=== PATIENT | female | born 1940 | race Two or more races ===

== ENCOUNTER 2020-01-07 11:40 | Inpatient (IN) ==
[2020-01-07 12:42] LABS: ABS Basophils 0.1 10^3/ul (0-0.2); ABS Eosinophils 0.2 10^3/ul (0-0.6); ABS Lymphocytes 1.4 10^3/ul (1.0-4.8); ABS Monocytes 0.4 10^3/ul (0-0.8); ABS Neutrophils 2.5 10^3/ul (1.5-7.7); Eosinophil % 3.6 %; Hematocrit 19 % (35-47); Lymphocyte % 30.2 %; Mean Corpuscular HGB Conc 33 g/dL (31-36); Mean Corpuscular Hemoglobin 28 pg (27-31); Mean Corpuscular Volume 86 fL (80-97); Mean Platelet Volume 8.4 fL (7.4-10.4); Nucleated Red Blood Cells % 0.1; Platelet Count 231 10^3/uL (150-450); Red Blood Count 2.16 10^6 /uL (3.70-4.87); Red Cell Distribution Width 15 % (10-15); White Blood Count 4.6 10^3/uL (3.5-10.8)
[2020-01-07 12:46] LABS: INR 1.09 (0.82-1.09)
[2020-01-07 12:59] LABS: Albumin 2.6 g/dL (3.2-5.2); Albumin/Globulin Ratio 0.8 (1-3); BUN/Creatinine Ratio 13.2 (8-20); EGFR African American 60.7 (>60); EGFR Non-African American 50.1 (>60); Globulin 3.2 g/dL (2-4); Potassium 3.8 mmol/L (3.5-5.0); Total Bilirubin 0.5 mg/dL (0.2-1.0); Total Protein 5.8 g/dL (6.4-8.9)
[2020-01-07 13:37] LABS: Burr Cells 1+; Polychromasia 1+; Schistocytes 1+
[2020-01-07 13:38] LABS: Tear Drop Cells 1+
[2020-01-07] MEDS: Pantoprazole 80 mg in NS BAG 80 MG/250 ML BAG IV SCH ×2 (13:40→23:14)
[2020-01-07] MEDS ORDERED: Albuterol 2.5mg/3 ml (0.083%) NEB.SOLN INH PRN (14:25)
[2020-01-07] MEDS ORDERED: Albuterol HFA INHALER 8 gm MDI INH PRN (14:42)
[2020-01-07 18:03] LABS: Hematocrit 23 % (35-47); Hemoglobin 7.3 g/dL (12.0-16.0)
[2020-01-08 00:43] LABS: Hematocrit 20 % (35-47); Hemoglobin 6.6 g/dL (12.0-16.0)
[2020-01-08 06:29] LABS: ABS Basophils 0.1 10^3/ul (0-0.2); ABS Eosinophils 0.2 10^3/ul (0-0.6); ABS Lymphocytes 1.4 10^3/ul (1.0-4.8); ABS Monocytes 0.4 10^3/ul (0-0.8); ABS Neutrophils 2.3 10^3/ul (1.5-7.7); Eosinophil % 4.8 %; Hematocrit 20 % (35-47); Hemoglobin 6.6 g/dL (12.0-16.0); Lymphocyte % 32.9 %; Mean Corpuscular HGB Conc 33 g/dL (31-36); Mean Corpuscular Hemoglobin 28 pg (27-31); Mean Corpuscular Volume 86 fL (80-97); Mean Platelet Volume 8.8 fL (7.4-10.4); Nucleated Red Blood Cells % 0.1; Platelet Count 178 10^3/uL (150-450); Red Blood Count 2.34 10^6 /uL (3.70-4.87); Red Cell Distribution Width 14 % (10-15); White Blood Count 4.4 10^3/uL (3.5-10.8)
[2020-01-08 06:52] LABS: BUN/Creatinine Ratio 12.5 (8-20); Calcium 8.4 mg/dL (8.6-10.3); EGFR Non-African American 56.2 (>60); Potassium 4.2 mmol/L (3.5-5.0)
[2020-01-08] MEDS: Pantoprazole 80 mg in NS BAG 80 MG/250 ML BAG IV SCH (11:18)
[2020-01-08] MEDS ORDERED: Midazolam 10 mg/10 ml VIAL 1 mg/ml 10 ml VIAL (10 mg) ONE (15:42)
[2020-01-08] MEDS ORDERED: fentaNYL 100 mcg/2 ml 50 MCG/ML VIAL ONE (15:42)
[2020-01-09] MEDS ORDERED: Pantoprazole 80 mg in NS BAG 80 MG/250 ML BAG IV SCH
[2020-01-09] MEDS: Pantoprazole 80 mg in NS BAG 80 MG/250 ML BAG IV SCH ×3 (00:02→14:29)
[2020-01-09 06:19] LABS: ABS Basophils 0.1 10^3/ul (0-0.2); ABS Eosinophils 0.5 10^3/ul (0-0.6); ABS Lymphocytes 1.4 10^3/ul (1.0-4.8); ABS Monocytes 0.4 10^3/ul (0-0.8); ABS Neutrophils 2.5 10^3/ul (1.5-7.7); Eosinophil % 9.6 %; Hematocrit 25 % (35-47); Lymphocyte % 28.8 %; Mean Corpuscular HGB Conc 33 g/dL (31-36); Mean Corpuscular Hemoglobin 28 pg (27-31); Mean Corpuscular Volume 86 fL (80-97); Mean Platelet Volume 8.7 fL (7.4-10.4); Platelet Count 165 10^3/uL (150-450); Red Blood Count 2.86 10^6 /uL (3.70-4.87); Red Cell Distribution Width 14 % (10-15); White Blood Count 4.8 10^3/uL (3.5-10.8)
[2020-01-09 06:29] LABS: BUN/Creatinine Ratio 12.6 (8-20); Calcium 8.3 mg/dL (8.6-10.3); EGFR African American 68.8 (>60); EGFR Non-African American 56.9 (>60); Potassium 3.8 mmol/L (3.5-5.0)
[2020-01-09 11:09] VITALS: BP 133/70
== END 2020-01-09 14:50 | disposition home or self-care (01) | DRG 378 ==
LOC: ED 11:40 → MEDTELE 11:40 → OBSVTOIN 13:21 → MEDTELE 15:51
PROVIDERS: ADMIT Internal Medicine; ATTEND Internal Medicine